=== PATIENT | female | born 1985 | race African-American/Black ===

== ENCOUNTER 2024-01-05 13:28 | Emergency (ER) | payer OTHER, SELFPAY ==
[~2024-01-05] VITALS: Ht 162.6 cm; Wt 82.8 kg
[2024-01-05] MEDS ORDERED: PRED20TA PO (15:03)
[2024-01-05 15:27] VITALS: BP 105/68; TEMP 97.8; O2SAT 100
== END 2024-01-05 15:28 | disposition home or self-care (01) ==
LOC: M ED 13:28
DX: L23.7 Allergic contact dermatitis due to plants, except food (principal); J45.909 Unspecified asthma, uncomplicated; Z79.52 Long term (current) use of systemic steroids

== ENCOUNTER 2024-01-10 21:53 | Emergency (ER) | payer SELFPAY ==
[~2024-01-10] VITALS: Ht 162.6 cm; Wt 83.0 kg
[~2024-01-10 21:53] MED LIST: PRED20TA PO
[2024-01-10 21:54] VITALS: BP 132/81; TEMP 98.3; O2SAT 100
== END 2024-01-11 01:30 | disposition left against medical advice (07) ==
LOC: M ED 21:53
DX: Z53.21 Procedure and treatment not carried out due to patient leaving prior to being seen by health care provider (principal)

== ENCOUNTER → 2024-04-15 | Outpatient (REF) | payer OTHER, SELFPAY | LOC: M LAB REF 19:05 | PROVIDERS: ATTEND Nurse Practitioner Family | DX: J06.9 Acute upper respiratory infection, unspecified (principal) ==

== ENCOUNTER → 2024-06-01 | Outpatient (REF) | payer OTHER | LOC: M LAB REF 19:53 | PROVIDERS: ATTEND Physician Assistant | DX: J06.9 Acute upper respiratory infection, unspecified (principal) ==

== ENCOUNTER 2024-08-04 19:27 | Emergency (ER) | payer OTHER ==
[~2024-08-04] VITALS: Ht 162.6 cm; Wt 79.9 kg
[2024-08-04 20:15] LABS: BASO % 0.3 % (0.0-1.0); EOS # 0.2 10^3/uL (0.0-0.5); EOS % 1.8 % (0.0-3.0); HEMATOCRIT 36.2 % (36.0-47.0); HEMOGLOBIN 11.4 g/dl (12.0-15.5); LYMPH # 1.8 10^3/uL (1.5-5.0); LYMPH % 19.2 % (24.0-44.0); MEAN CORPUSCULAR HEMOGLOBIN 26.2 pg (27.0-33.0); MEAN CORPUSCULAR HGB CONC 31.5 g/dl (32.0-36.5); MEAN CORPUSCULAR VOLUME 83.2 fl (80.0-96.0); MONO # 0.6 10^3/uL (0.0-0.8); MONO % 6.2 % (2.0-8.0); NEUTROPHILS # 6.7 10^3/uL (1.5-8.5); NEUTROPHILS % 72.3 % (36.0-66.0); PLATELET COUNT, AUTOMATED 231 10^3/uL (150-450); RED BLOOD COUNT 4.35 10^6/uL (4.00-5.40); WHITE BLOOD COUNT 9.3 10^3/uL (4.0-10.0)
[2024-08-04 20:49] LABS: CK-MB VALUE MASS < 1.0 NG/ML (<3.6)
[2024-08-04 20:50] LABS: CPK CREATINE PHOSPHOKINASE 118 U/L (34-145); MB/CK RELATIVE INDEX 0.84 (< OR =4)
[2024-08-04 20:51] LABS: BLOOD UREA NITROGEN 10 MG/DL (9-23); CALCIUM LEVEL 9.4 MG/DL (8.5-10.1); CARBON DIOXIDE LEVEL 24 MMOL/L (20-31); CHLORIDE LEVEL 107 MMOL/L (98-107); CREATININE FOR GFR 0.86 MG/DL (0.55-1.30); GLOMERULAR FILTRATION RATE > 60.0 (>60); GLUCOSE, FASTING 83 MG/DL (60-100); POTASSIUM SERUM 3.5 MMOL/L (3.5-5.1); SODIUM LEVEL 142 MMOL/L (136-145)
[2024-08-04 21:45] LABS: CK-MB VALUE MASS < 1.0 NG/ML (<3.6)
[2024-08-04 21:47] LABS: CPK CREATINE PHOSPHOKINASE 118 U/L (34-145); MB/CK RELATIVE INDEX 0.84 (< OR =4)
[2024-08-04] MEDS: NS (Normal Saline) 0.9% 1,000 ML IV ONE (21:51)
[2024-08-04] MEDS: MECLIZINE 25 MG TABLET PO ONE (22:20)
[2024-08-04] MEDS ORDERED: ISOVUE-370 76% 100ML VIAL As Ordered ONE (22:27)
[2024-08-05] MEDS ORDERED: FLON1SPR NARES (00:52)
[2024-08-05] MEDS ORDERED: AMOX875T PO (00:52)
[2024-08-05 01:01] VITALS: BP 113/59; TEMP 98.5; O2SAT 99
== END 2024-08-05 01:46 | disposition home or self-care (01) ==
LOC: M ED 19:27
DX: J06.9 Acute upper respiratory infection, unspecified (principal); H65.02 Acute serous otitis media, left ear; J45.909 Unspecified asthma, uncomplicated; F10.10 Alcohol abuse, uncomplicated; Z91.013 Allergy to seafood; Z79.2 Long term (current) use of antibiotics; Z79.899 Other long term (current) drug therapy
CPT/HCPCS: 71045; 71275; 80048; 82550; 82553; 84484; 85025; 87486; 87581; 87633; 87798; 93005; 93041; 94760; 96360; 96361; 99285; Q9967

== ENCOUNTER 2024-11-20 06:13 | Emergency (ER) | payer OTHER ==
[~2024-11-20] VITALS: Ht 162.6 cm; Wt 77.3 kg
[~2024-11-20 06:13] MED LIST changes: +AMOX875T PO; +FLON1SPR NARES
[2024-11-20] MEDS ORDERED: ISOVUE-370 76% 100ML VIAL As Ordered ONE (07:48)
[2024-11-20] MEDS: MORPHINE 4 MG/ML 1ML VIAL IV PRN (07:50)
[2024-11-20 08:05] LABS: BASO % 0.5 % (0.0-1.0); EOS # 0.1 10^3/uL (0.0-0.5); EOS % 1.9 % (0.0-3.0); HEMATOCRIT 35.7 % (36.0-47.0); HEMOGLOBIN 10.6 g/dl (12.0-15.5); LYMPH # 1.1 10^3/uL (1.5-5.0); LYMPH % 19.5 % (24.0-44.0); MEAN CORPUSCULAR HEMOGLOBIN 24.4 pg (27.0-33.0); MEAN CORPUSCULAR HGB CONC 29.7 g/dl (32.0-36.5); MEAN CORPUSCULAR VOLUME 82.1 fl (80.0-96.0); MONO # 0.4 10^3/uL (0.0-0.8); MONO % 6.5 % (2.0-8.0); NEUTROPHILS # 4.2 10^3/uL (1.5-8.5); NEUTROPHILS % 71.4 % (36.0-66.0); PLATELET COUNT, AUTOMATED 311 10^3/uL (150-450); RED BLOOD COUNT 4.35 10^6/uL (4.00-5.40); WHITE BLOOD COUNT 5.9 10^3/uL (4.0-10.0)
[2024-11-20 08:12] LABS: LIPASE 28 U/L (12-53)
[2024-11-20 08:14] LABS: ALBUMIN 3.7 G/DL (3.2-5.2); ALKALINE PHOSPHATASE 41 U/L (35-104); ALT/SGPT 20 U/L (7.0-40); AMYLASE 59 U/L (30-118); AST/SGOT 30 U/L (<34); BILIRUBIN,DIRECT < 0.1 MG/DL (<0.4); BILIRUBIN,TOTAL 0.3 MG/DL (0.3-1.2); BLOOD UREA NITROGEN 11 MG/DL (9-23); CALCIUM LEVEL 8.9 MG/DL (8.5-10.1); CARBON DIOXIDE LEVEL 23 MMOL/L (20-31); CHLORIDE LEVEL 107 MMOL/L (98-107); CREATININE FOR GFR 0.72 MG/DL (0.55-1.30); GLOMERULAR FILTRATION RATE > 90.0 (>60); GLUCOSE, FASTING 90 MG/DL (60-100); POTASSIUM SERUM 4.7 MMOL/L (3.5-5.1); SODIUM LEVEL 138 MMOL/L (136-145); TOTAL PROTEIN 7.7 G/DL (5.7-8.2)
[2024-11-20] MEDS ORDERED: MECL-86 PO (11:24)
[2024-11-20 11:58] VITALS: BP 109/66; TEMP 97.4; O2SAT 99
[2024-11-21] MEDS ORDERED: NORE5TAB (10:30)
[2024-11-21] MEDS ORDERED: MECL-86 PO (10:31)
[2024-11-21] MEDS ORDERED: METH-1165 PO (15:12)
[2024-11-21] MEDS ORDERED: NAPR-837 PO (15:12)
== END 2024-11-20 12:14 | disposition home or self-care (01) ==
LOC: EDBD 06:13 → M ED 06:13
DX: S06.0X0A Concussion without loss of consciousness, initial encounter (principal); S16.1XXA Strain of muscle, fascia and tendon at neck level, initial encounter; S20.20XA Contusion of thorax, unspecified, initial encounter; S70.02XA Contusion of left hip, initial encounter; J45.909 Unspecified asthma, uncomplicated; V49.40XA Driver injured in collision with unspecified motor vehicles in traffic accident, initial encounter; Y92.410 Unspecified street and highway as the place of occurrence of the external cause; Y93.89 Activity, other specified; Y99.9 Unspecified external cause status; Z91.013 Allergy to seafood; Z79.899 Other long term (current) drug therapy
CPT/HCPCS: 70450; 70551; 71045; 71260; 72125; 73502; 74177; 80047; 80048; 80076; 82150; 83690; 85025; 93005; 93041; 96374; 96376; 99285; Q9967

== ENCOUNTER 2024-11-21 10:21 | Emergency (ER) | payer OTHER ==
[~2024-11-21] VITALS: Ht 162.6 cm; Wt 74.0 kg
[~2024-11-21 10:21] MED LIST changes: +MECL-86 PO
[2024-11-21] MEDS ORDERED: NORE5TAB (10:30)
[2024-11-21] MEDS ORDERED: MECL-86 PO (10:31)
[2024-11-21] MEDS: KETOROLAC 30 MG/ML 1 ML VIAL IM ONE (14:20)
[2024-11-21 14:27] VITALS: BP 115/63; TEMP 97; O2SAT 100
[2024-11-21] MEDS ORDERED: NAPR-837 PO (15:12)
[2024-11-21] MEDS ORDERED: METH-1165 PO (15:12)
== END 2024-11-21 15:24 | disposition home or self-care (01) ==
LOC: M ED 10:21
DX: M79.10 Myalgia, unspecified site (principal); F07.81 Postconcussional syndrome; V49.40XS Driver injured in collision with unspecified motor vehicles in traffic accident, sequela; Z91.013 Allergy to seafood; Z79.1 Long term (current) use of non-steroidal anti-inflammatories (NSAID); Z79.899 Other long term (current) drug therapy; Y99.9 Unspecified external cause status
CPT/HCPCS: 96372; 99283; J1885

== ENCOUNTER 2024-11-22 20:20 | Emergency (ER) | payer OTHER ==
[~2024-11-22] VITALS: Ht 162.6 cm; Wt 86.8 kg
[~2024-11-22 20:20] MED LIST changes: +METH-1165 PO; +NAPR-837 PO; +NORE5TAB
[2024-11-22 20:24] VITALS: BP 116/60; TEMP 97.6; O2SAT 100
== END 2024-11-22 22:05 | disposition left against medical advice (07) ==
LOC: M ED 20:20
DX: Z53.21 Procedure and treatment not carried out due to patient leaving prior to being seen by health care provider (principal)

== ENCOUNTER 2025-06-23 11:19 | Emergency (ER) | payer OTHER ==
[~2025-06-23] VITALS: Ht 162.6 cm; Wt 87.3 kg
[2025-06-23 12:03] LABS: BASO # 0.0 10^3/uL (0.0-0.2); BASO % 0.2 % (0.0-1.0); EOS # 0.1 10^3/uL (0.0-0.5); EOS % 2.1 % (0.0-3.0); LYMPH # 1.5 10^3/uL (1.5-5.0); LYMPH % 23.3 % (24.0-44.0); MONO # 0.7 10^3/uL (0.0-0.8); MONO % 10.5 % (2.0-8.0); NEUTROPHILS # 4.0 10^3/uL (1.5-8.5); NEUTROPHILS % 63.7 % (36.0-66.0); PLATELET COUNT, AUTOMATED 238 10^3/uL (150-450)
[2025-06-23 12:31] LABS: CALCIUM LEVEL 8.8 MG/DL (8.5-10.1); CARBON DIOXIDE LEVEL 22 MMOL/L (20-31); CHLORIDE LEVEL 105 MMOL/L (98-107); CREATININE FOR GFR 0.68 MG/DL (0.55-1.30); GLOMERULAR FILTRATION RATE > 90.0 (>60); POTASSIUM SERUM 4.0 MMOL/L (3.5-5.1); SODIUM LEVEL 137 MMOL/L (136-145)
[2025-06-23] MEDS: ACETAMINOPHEN *IV* 1,000 MG in IV 1 EA IV ONE (12:55)
[2025-06-23] MEDS: ONDANSETRON 4MG/2ML VIAL IV ONE (13:23)
[2025-06-23 13:50] LABS: KETONE, URINE AUTO RFX NEGATIVE (NEGATIVE); MUCUS, URINE RFX SMALL (NEGATIVE); NITRITE, URINE AUTO RFX NEGATIVE (NEGATIVE); RBC, URINE AUTO RFX TNTC /HPF (0-3); SQUAM EPITHELIAL CELL UR AURFX 7 /HPF (0-6)
[2025-06-23 13:57] LABS: LEUKOCYTE ESTERASE UR AUTO RFX TRACE (NEGATIVE); WBC, URINE AUTO RFX 11 /HPF (0-3)
[2025-06-23 15:35] VITALS: BP 96/64; TEMP 98.7; O2SAT 98
== END 2025-06-23 15:44 | disposition home or self-care (01) ==
LOC: M ED 11:19
DX: O03.4 Incomplete spontaneous abortion without complication (principal); J45.909 Unspecified asthma, uncomplicated; Z79.1 Long term (current) use of non-steroidal anti-inflammatories (NSAID)
CPT/HCPCS: 76801; 76817; 80048; 81001; 84702; 85025; 86850; 86900; 86901; 87086; 93975; 96374; 96375; 99284; J0131; J2405

== ENCOUNTER → 2025-07-03 | Outpatient (CLI) | payer OTHER | LOC: M PLALAB 15:46 | PROVIDERS: ATTEND Nurse Practitioner Family | DX: O03.9 Complete or unspecified spontaneous abortion without complication (principal) ==